=== PATIENT | female | born 1990 | race African-American/Black ===

== ENCOUNTER 2018-04-25 15:57 | Emergency (ER) | payer SELFPAY, OTHER ==
[2018-04-25] MEDS: IV NORMAL SALINE 1000ML BAG 1,000 ML IV (16:23)
[2018-04-25] MEDS: DEXAMETHASONE SOD PHOS 20 MG/5 ML VIAL. IV (16:24)
[2018-04-25] MEDS: PROCHLORPERAZINE 10 MG/2 ML VIAL. IV (16:24)
[2018-04-25] MEDS: diphenhydrAMINE 50 MG/ML VIAL IVP (16:24)
[2018-04-25 16:32] LABS: ADD MAN DIFF? NO
[2018-04-25 16:42] LABS: BASO % 1 % (0-3); EOS # 0.2 x10^3/uL (0.0-0.7); EOS % 3 % (0-3); HEMATOCRIT 42.6 % (36.0-47.0); HEMOGLOBIN 14.4 g/dL (12.0-15.5); LYMPH # 2.7 x10^3/uL (1.0-4.8); LYMPH % 35 % (24-48); MEAN CORPUSCULAR HEMOGLOBIN 29 pg (25-35); MEAN CORPUSCULAR HGB CONC 34 g/dL (31-37); MEAN CORPUSCULAR VOLUME 87 fL (79-100); MONO # 0.4 x10^3/uL (0.0-1.1); MONO % 6 % (0-9); NEUT # 4.4 x10^3uL (1.8-7.7); NEUT % 56 % (31-73); PLATELET COUNT 271 x10^3/uL (140-400); RED BLOOD COUNT 4.92 x10^6/uL (3.50-5.40); RED CELL DISTRIBUTION WIDTH 12.8 % (11.5-14.5); WHITE BLOOD COUNT 7.8 x10^3/uL (4.0-11.0)
[2018-04-25 16:54] LABS: ANION GAP 10 (6-14); BLOOD UREA NITROGEN 5 mg/dL (7-20); BUN/CREATININE RATIO 8 (6-20); CARBON DIOXIDE 26 mmol/L (21-32); CHLORIDE 102 mmol/L (98-107); CREATININE 0.6 mg/dL (0.6-1.0); GLUCOSE 77 mg/dL (70-99); POTASSIUM 3.8 mmol/L (3.5-5.1); SODIUM 138 mmol/L (136-145)
[2018-04-25 17:01] LABS: ALBUMIN 3.5 g/dL (3.4-5.0); ALBUMIN/GLOBULIN RATIO 0.9 (1.0-1.7); ALK PHOS 55 U/L (46-116); ALT (SGPT) 22 U/L (14-59); AST (SGOT) 14 U/L (15-37); LIPASE 87 U/L (73-393); TOTAL BILIRUBIN 0.4 mg/dL (0.2-1.0); TOTAL PROTEIN 7.4 g/dL (6.4-8.2)
== END 2018-04-25 17:50 | disposition home or self-care (01) ==
LOC: ER 15:57
DX: R51 Headache (principal); R19.7 Diarrhea, unspecified; R11.0 Nausea; R03.0 Elevated blood-pressure reading, without diagnosis of hypertension; F17.200 Nicotine dependence, unspecified, uncomplicated; Z90.49 Acquired absence of other specified parts of digestive tract; Z98.51 Tubal ligation status
CPT/HCPCS: 36415; 80053; 83690; 85025; 96361; 96374; 96375; 99284; J0780; J1100; J1200; J7030

== ENCOUNTER → 2020-05-14 | Outpatient (CLI) | payer OTHER ==
[2018-04-25 17:00] VITALS: BP 129/79
[~2020-05-14] MED LIST: DICY20TA3 PO; ONDA4TAB10 SL; SUMA50TA3 PO; TRAM-48 PO
--- NOTE | 2020-05-14 13:34 | KCIC ---
Calcaneus 2 views INDICATION: Right heel pain for 2 to 3 weeks FINDINGS: Normal osseous mineralization and alignment. No fracture or aggressive osseous lesions shown. Minimal osteophytic spurring of the tibiotalar joint. Tiny plantar calcaneal spur. Incidental os trigonum. IMPRESSION: Tiny calcaneal spur. No fracture or malalignment shown by x-ray. Electronically signed by: Felicia Gill MD (05/14/2020 1:31 PM) [id number]
== END | disposition home or self-care (01) ==
LOC: KCIC 12:39
PROVIDERS: ATTEND Nurse Practitioner Family
DX: M77.31 Calcaneal spur, right foot (principal); M25.774 Osteophyte, right foot
CPT/HCPCS: 73650

== ENCOUNTER 2021-10-11 11:14 | Emergency (ER) | payer OTHER ==
[2018-04-25 17:00] VITALS: BP 129/79
[~2021-10-11 11:14] MED LIST changes: +DICY20TA PO; -DICY20TA3 PO
== END 2021-10-11 13:45 | disposition left against medical advice (07) ==
LOC: ER 11:14
DX: R51.9 Headache, unspecified (principal); Z53.21 Procedure and treatment not carried out due to patient leaving prior to being seen by health care provider